=== PATIENT | female | born 1985 | race Caucasian/White ===

== ENCOUNTER 2016-10-06 11:33 | Emergency (ER) | payer SELFPAY ==
[2016-10-06 11:39] VITALS: BP 103/67; BMI 23.6
[2016-10-06] MEDS ORDERED: TORADOL 60 MG VIAL IM ONE (12:31)
[2016-10-06] MEDS ORDERED: DECADRON INJ IM ONE (12:31)
[2016-10-06] MEDS ORDERED: DECADRON INJ ONE (12:34)
[2016-10-06] MEDS ORDERED: TORADOL 60 MG VIAL ONE (12:34)
--- NOTE | 2016-10-06 12:34 | DR.GENAD ---
HPI - PCP Primary Care Physician: NFD - Complaint/Symptoms Chief Complaint Doctors Comments: "R flank pain with chills" Chief Complaint:: HURTING IN RIGHT BACK, KIDNEY AREA, URING SMELLS BAD Self Treatment fo Chief Complaint: DRINKING WATER - Nurses notes reviewed Nurses Notes Review: Yes - Source History Provided: Patient - Mode of Arrival Mode of Arrival: Ambulatory - Timing Onset of Chief Complaint: 09/15/16 - Duration Duration: Intermittent How lon Duration: Weeks - Location Location: R and L flank R>L PMH - PMH Past Medical History: Yes Past Medical History: Migraines, Kidney Stones Past Surgical History: Yes Surgical History: Appendectomy, Bowel Resection, , Hysterectomy Past Surgical History Comment: 3 EXPL LAPS, - Family History History of Family Medical Conditions: Yes Family Medical History: Diabetes Mellitus, Cancer, [place], Hypertension - Social History Does patient currently use any type of tobacco product: Yes Have you used tobacco products in the last 12 months: Yes Type of Tobacco Use: Cigarettes How many years tobacco product used: 15 Does any household member use tobacco: Yes Alcohol Use: None Do you use any recreational Drugs:: No Lives With: Friend Lives Where: Home - infectious screening In the last 2 months have you had wt loss of >10#?: NO Have you had fever, night sweats or hemotysis?: No Have you traveled outside the country in the last 6 months?: No Isolation: Standard ROS - Review of Systems Constitutional: No Symptoms Reported Respiratoy: No Symptoms Reported Cardiovascular: No Symptoms Reported Gastrointestinal/Abdominal: No Symptoms Reported Genitourinary: Pain Neurological: No Symptoms Reported Musculoskeletal: Back Integumentary: No Symptoms Reported Endocrine: No Symptoms Reported Psychiatric: No Symptoms Reported All Other Systems: Reviewed and Negative PE - Vital Signs Vitals: Temperature 97.9 F Pulse Rate 72 Respiratory Rate 16 Blood Pressure 103/67 O2 Sat by Pulse Oximetry 100 - General Limitations: No Limitations General Appearance: Alert, In No Apparent Distress, Anxious - Head Head Exam: Normal Inspection - Eyes Eye exam: Normal Appearance - Neck Neck Exam: Normal Inspection, Full ROM - Chest Chest Inspection: Normal Inspection, Symmetric Chest Wall Rise - Respiratory Respiratory Exam: Normal Lung Sounds Bilat, Accessory Muscle Use - Abdominal Exam Abdominal Exam: Normal Inspection, Normal Bowel Sounds, Soft - Back Back Exam: (R) CVA Tenderness, (L) CVA Tenderness - Neurologic Neurological Exam: Alert, Oriented X3, CN II-XII Intact - Psychiatric Psychiatric Exam: Normal Affect, Normal Mood - Skin Skin Exam: Warm, Dry, Intact, Normal Color ROR - Labs Reviewed Result Diagrams: 10/06/16 13:10 Laboratory: Specimen Type Clean catch urine 10/06/16 12:19 Urine Color Yellow (YELLOW) 10/06/16 12:19 Urine Appearance Clear (CLEAR) 10/06/16 12:19 Urine pH 7.0 (5.0 - 8.0) 10/06/16 12:19 Ur Specific [place] 1.010 (1.000-1.030) 10/06/16 12:19 Urine Protein Negative (NEGATIVE) 10/06/16 12:19 Urine Glucose (UA) Negative (NEGATIVE) 10/06/16 12:19 Urine Ketones Negative (NEGATIVE) 10/06/16 12:19 Urine Occult Blood Negative (NEGATIVE) 10/06/16 12:19 Urine Nitrite Negative (NEGATIVE) 10/06/16 12:19 Urine Bilirubin Negative (NEGATIVE) 10/06/16 12:19 Urine Urobilinogen Normal (NORMAL) 10/06/16 12:19 Ur Leukocyte Esterase Negative (NEGATIVE) 10/06/16 12:19 Urine RBC None seen /HPF (NEGATIVE) 10/06/16 12:19 Urine WBC Rare /HPF (NEGATIVE) 10/06/16 12:19 Ur Squamous Epith Cells Few /HPF (NEGATIVE) 10/06/16 12:19 Amorphous Sediment Trace /HPF (NEGATIVE) 10/06/16 12:19 Urine Bacteria Trace /HPF (NEGATIVE) 10/06/16 12:19 Ur Culture Indicated? No/not indicated 10/06/16 12:19 - Diagnosis Discharge Problem: Flank pain - Discharge Plan Disposition: 01 HOME, SELF-CARE Condition: Stable - Follow ups/Referrals Follow ups/Referrals: GUI REYES [Primary Care Provider] - 3 days - Instructions Instructions: Flank Pain, [id number], Flank Pain
[2016-10-06 12:45] LABS: BILIRUBIN,URINE NEGATIVE (NEGATIVE); BLOOD/HEMOGLOBIN,URINE NEGATIVE (NEGATIVE); GLUCOSE, URINE NEGATIVE (NEGATIVE); KETONES,URINE NEGATIVE (NEGATIVE); LEUKOCYTE ESTERASE ,URINE NEGATIVE (NEGATIVE); NITRITES,URINE NEGATIVE (NEGATIVE); PROTEIN,URINE NEGATIVE (NEGATIVE); UROBILINOGEN,URINE NORMAL (NORMAL)
[2016-10-06 12:53] LABS: AMORPHOUS SEDIMENT,UR TRACE /HPF (NEGATIVE); APPEARANCE,URINE CLEAR (CLEAR); BACTERIA,URINE TRACE /HPF (NEGATIVE); COLOR,URINE YELLOW (YELLOW); RBC,URINE NONE SEEN /HPF (NEGATIVE); SQUAMOUS EPITHELIAL CELL,UR FEW /HPF (NEGATIVE)
--- NOTE | 2016-10-06 13:12 | RAD ---
HISTORY: Right flank pain Study: KUB, a single AP view was obtained Comparison: None Findings: Evaluation of the abdomen demonstrates a normal bowel gas pattern. There are left-sided pelvic calc ifications favored to represent phleboliths, but correlation with urinalysis would be necessary to e xclude a recently passed bladder stones given the clinical history. Suture is noted within the pelvi s as well. The bony structures are grossly intact. IMPRESSION: No definite evidence for acute abdominal pathology identified. Pelvic calcifications as above. Reported By:
[2016-10-06 13:30] LABS: BASOPHILS % (AUTO) 0.5 % (0.2-1.0); EOSINOPHILS # (AUTO) 0.1 x10^3/uL (0.0-0.2); EOSINOPHILS % (AUTO) 1.2 % (0.9-2.9); HEMATOCRIT 39.7 % (36.0-47.0); HEMOGLOBIN 13.9 g/dL (12.0-16.0); LYMPHOCYTES # (AUTO) 2.2 X10^3/uL (1.3-2.9); LYMPHOCYTES % (AUTO) 28.6 % (21.0-51.0); MEAN CORPUSCULAR HEMOGLOBIN 33.3 pg (27.0-34.0); MEAN CORPUSCULAR VOLUME 95.2 fL (80.0-100.0); MEAN PLATELET VOLUME 9.1 fL (7.4-11.0); MONOCYTES # (AUTO) 0.5 x10^3/uL (0.3-0.8); NEUTROPHILS # (AUTO) 4.7 x10^3/uL (2.2-4.8); NEUTROPHILS % (AUTO) 62.7 % (42.0-75.0); PLATELET COUNT 228 X10^3/uL (150.0-450.0); RED BLOOD COUNT 4.17 X10^6/uL (3.5-5.4); RED CELL DISTRIBUTION WIDTH 12.9 % (11.6-16.5); WHITE BLOOD COUNT 7.5 X10^3/uL (3.6-10.0)
== END 2016-10-06 13:46 | disposition home or self-care (01) ==
LOC: ER 11:57
DX: R10.84 Generalized abdominal pain (principal)
CPT/HCPCS: 36415; 74000; 81001; 85025; 96372; 99282; J1100; J1885